=== PATIENT | female | born 1965 | race Caucasian/White ===

== ENCOUNTER 2023-04-29 15:12 | Inpatient (IN) ==
[2023-04-29] MEDS ORDERED: IPRATROPIUM/ALBUTEROL 3 ML AMPUL.NEB NEB ONE ×2 (15:28)
[2023-04-29] MEDS ORDERED: ACETAMINOPHEN 325 MG TABLET PO ONE (15:28)
[2023-04-29] MEDS ORDERED: IPRATROPIUM/ALBUTEROL 3 ML AMPUL.NEB NEB PRN (15:28)
[2023-04-29] MEDS ORDERED: 0.9 % SODIUM CHLORIDE 1,000 ML IV ONE (15:28)
[2023-04-29] MEDS ORDERED: methylPREDNISolone SOD SUCC 125 MG/2 ML VIAL IV ONE (15:28)
[2023-04-29] MEDS ORDERED: MAGNESIUM SULFATE 8.12 MEQ/2 ML VIAL IV STA (15:30)
[2023-04-29] MEDS ORDERED: LEVOFLOXACIN 500 MG/100 ML BAG IV ONE (15:32)
[2023-04-29] MEDS ORDERED: LORazepam 2 MG/ML VIAL IV ONE ×2 (15:43→15:59)
[2023-04-29 16:48] LABS: Basophils # (Auto) 0.06 K/mcL (0.00-0.30); Basophils % (Auto) 0.3 % (0.0-2.0); Eosinophils # (Auto) 0.15 K/mcL (0.00-0.70); Eosinophils % (Auto) 0.7 % (0.0-7.0); Hematocrit 47.3 % (34.1-44.9); Hemoglobin 17.3 g/dL (11.2-15.7); Lymphocytes # (Auto) 0.97 K/mcL (1.50-4.80); Lymphocytes % (Auto) 4.3 % (15.5-49.0); Mean Cell Volume 94.4 fL (80.0-100.0); Mean Corpuscular HGB Conc 36.6 g/dL (31.0-36.0); Mean Platelet Volume 10.4 fL (8.8-12.5); Monocytes # (Auto) 0.81 K/mcL (0.10-0.90); Monocytes % (Auto) 3.6 % (1.0-12.0); Neutrophils % (Auto) 90.2 % (38.0-78.0); Platelet Count 232 K/mcL (140-440); RBC 5.01 M/mcL (3.59-5.38); Red Cell Distribution Width 12.1 % (11.5-14.5); WBC 22.7 K/mcL (4.5-11.0)
[2023-04-29] MEDS ORDERED: MAGNESIUM SULFATE 1 GM/100 ML BAG IV ONE (17:02)
[2023-04-29 17:11] LABS: ALT/SGPT 34 U/L (<40); AST/SGOT 70 U/L (<32); Albumin 3.9 gm/dL (3.2-5.2); Albumin/Globulin Ratio 1.1 (1.0-2.3); Alkaline Phosphatase 101 U/L (39-117); Bilirubin,Total 0.4 mg/dL (0.1-1.0); Blood Urea Nitrogen 6 mg/dL (6-20); Calcium 9.1 mg/dL (8.6-10.4); Carbon Dioxide 25 mmol/L (22-30); Chloride 84 mmol/L (96-108); Globulin 3.6 gm/dL (2.2-3.7); Glomerular Filtration Rate 97; Glucose 141 mg/dL (70-105)
[2023-04-29] MEDS ORDERED: MAGNESIUM SULFATE 2 GM/50 ML BAG IV ONE (17:24)
[2023-04-29] MEDS ORDERED: ACETAMINOPHEN 325 MG TABLET PO PRN (19:59)
[2023-04-29] MEDS ORDERED: LACTULOSE 20 GM/30 ML ORAL.SOL PO PRN (19:59)
[2023-04-29] MEDS ORDERED: SENNOSIDES 1 TABLET PO PRN (19:59)
[2023-04-29] MEDS ORDERED: ONDANSETRON 4 MG/2 ML VIAL IV PRN (19:59)
[2023-04-29] MEDS: IPRATROPIUM/ALBUTEROL 3 ML AMPUL.NEB NEB SCH ×2 (20:18→23:15)
[2023-04-29] MEDS ORDERED: levETIRAcetam 500 MG in 0.9 % SODIUM CHLORIDE 100 ML IV SCH (21:00)
[2023-04-29] MEDS: ALBUTEROL SULFATE 2.5 MG/3 ML NEBULIZER NEB PRN (21:02)
[2023-04-29] MEDS: DOCUSATE SODIUM 100 MG CAPSULE PO SCH (21:12)
[2023-04-29] MEDS: levETIRAcetam 500 MG TABLET PO SCH (21:13)
[2023-04-29] MEDS: 0.9 % SODIUM CHLORIDE 1,000 ML IV SCH (21:42)
[2023-04-29] MEDS: morphine 15 MG TAB.SR.12H PO SCH ×2 (21:43→21:52)
[2023-04-29] MEDS: methylPREDNISolone SOD SUCC 125 MG/2 ML VIAL IV SCH (21:43)
[2023-04-29] MEDS: NICOTINE 21 MG PATCH TOPICAL SCH (21:43)
[2023-04-29] MEDS: 0.9 % SODIUM CHLORIDE 10 ML SYRINGE IV SCH (21:44)
[2023-04-29 22:00] LABS: ABG Methemoglobin 0.2 % (0.4-1.5); Total Hemoglobin 16.5 gm/Dl (12.0-15.0); VBG Base Excess -2 (-2-3); VBG HCO3 21.1 mmol/L (24.0-28.0); VBG Oxygen Saturation 93.3 % (40.0-70.0); VBG PCO2 33.3 mmHg (41.0-51.0); VBG PH 7.42 U (7.32-7.42); VBG Total CO2 22.1 mmol/L (25.0-29.0)
[2023-04-29 22:12] LABS: ALT/SGPT 32 U/L (<40); AST/SGOT 74 U/L (<32); Albumin 3.5 gm/dL (3.2-5.2); Albumin/Globulin Ratio 1.1 (1.0-2.3); Alkaline Phosphatase 81 U/L (39-117); Bilirubin,Direct < 0.2 mg/dL (0-0.3); Bilirubin,Total 0.3 mg/dL (0.1-1.0); Blood Urea Nitrogen 6 mg/dL (6-20); Calcium 8.6 mg/dL (8.6-10.4); Carbon Dioxide 23 mmol/L (22-30); Chloride 85 mmol/L (96-108); Globulin 3.3 gm/dL (2.2-3.7); Glomerular Filtration Rate 102; Glucose 136 mg/dL (70-105); Lactate Dehydrogenase 337 U/L (135-225); Phosphorous 2.1 mg/dL (2.5-4.5); Triglycerides 65 mg/dL (<150); Uric Acid 5.2 mg/dL (2.5-8.0)
[2023-04-30] MEDS: oxyCODONE/APAP 5/325MG TABLET PO PRN ×5 (00:50→22:04)
[2023-04-30] MEDS: ALBUTEROL SULFATE 2.5 MG/3 ML NEBULIZER NEB PRN (00:55)
[2023-04-30] MEDS ORDERED: IOPAMIDOL 100 ML BOTTLE IV ONE (01:12)
[2023-04-30] MEDS: IPRATROPIUM/ALBUTEROL 3 ML AMPUL.NEB NEB SCH ×6 (03:28→23:08)
[2023-04-30] MEDS: morphine 15 MG TAB.SR.12H PO SCH ×3 (05:20→19:45)
[2023-04-30] MEDS: 0.9 % SODIUM CHLORIDE 10 ML SYRINGE IV SCH ×3 (05:26→20:43)
[2023-04-30] MEDS ORDERED: POTASSIUM CHLORIDE 20 MEQ TABLET PO ONE ×2 (06:28→07:03)
[2023-04-30] MEDS: levETIRAcetam 500 MG TABLET PO SCH ×4 (06:44→19:18)
[2023-04-30] MEDS: DOCUSATE SODIUM 100 MG CAPSULE PO SCH ×2 (07:02→19:18)
[2023-04-30 07:07] LABS: Basophils # (Auto) 0.03 K/mcL (0.00-0.30); Basophils % (Auto) 0.2 % (0.0-2.0); Eosinophils # (Auto) 0.04 K/mcL (0.00-0.70); Eosinophils % (Auto) 0.2 % (0.0-7.0); Hemoglobin 14.6 g/dL (11.2-15.7); Lymphocytes # (Auto) 0.87 K/mcL (1.50-4.80); Lymphocytes % (Auto) 4.4 % (15.5-49.0); Mean Corpuscular HGB Conc 34.8 g/dL (31.0-36.0); Mean Platelet Volume 9.9 fL (8.8-12.5); Monocytes # (Auto) 0.62 K/mcL (0.10-0.90); Monocytes % (Auto) 3.1 % (1.0-12.0); Neutrophils % (Auto) 91.3 % (38.0-78.0); Platelet Count 200 K/mcL (140-440); RBC 4.33 M/mcL (3.59-5.38); Red Cell Distribution Width 12.4 % (11.5-14.5); WBC 19.8 K/mcL (4.5-11.0)
[2023-04-30 07:46] LABS: ALT/SGPT 31 U/L (<40); AST/SGOT 77 U/L (<32); Albumin 3.2 gm/dL (3.2-5.2); Alkaline Phosphatase 79 U/L (39-117); Bilirubin,Direct < 0.2 mg/dL (0-0.3); Bilirubin,Total 0.3 mg/dL (0.1-1.0); Blood Urea Nitrogen 5 mg/dL (6-20); Calcium 8.5 mg/dL (8.6-10.4); Carbon Dioxide 22 mmol/L (22-30); Chloride 88 mmol/L (96-108); Globulin 3.2 gm/dL (2.2-3.7); Glomerular Filtration Rate 108; Glucose 113 mg/dL (70-105); Lactate Dehydrogenase 365 U/L (135-225); Phosphorous 1.7 mg/dL (2.5-4.5); Triglycerides 72 mg/dL (<150); Uric Acid 5.7 mg/dL (2.5-8.0)
[2023-04-30] MEDS: LORazepam 2 MG/ML VIAL IV PRN ×3 (07:46→22:05)
[2023-04-30] MEDS: methylPREDNISolone SOD SUCC 125 MG/2 ML VIAL IV SCH ×2 (08:51→20:43)
[2023-04-30] MEDS: ENOXAPARIN 40 MG/0.4 ML SYRINGE SQ SCH (08:52)
[2023-04-30] MEDS: 0.9 % SODIUM CHLORIDE 1,000 ML IV SCH ×3 (09:45→16:02)
[2023-04-30] MEDS ORDERED: POTASSIUM PHOSPHATE 40 MEQ in DEXTROSE 5% IN WATER 500 ML IV ONE (10:00)
[2023-04-30 10:06] LABS: ABG Methemoglobin 0.2 % (0.4-1.5); Total Hemoglobin 15.5 gm/Dl (12.0-15.0); VBG Base Excess 2 (-2-3); VBG Oxygen Saturation 95.7 % (40.0-70.0); VBG PCO2 43.6 mmHg (41.0-51.0); VBG PH 7.41 U (7.32-7.42); VBG Total CO2 28.4 mmol/L (25.0-29.0)
[2023-04-30] MEDS: NICOTINE 21 MG PATCH TOPICAL SCH (10:21)
[2023-04-30] MEDS ORDERED: LEVOFLOXACIN 750 MG/150 ML BAG IV SCH (12:00)
[2023-04-30] MEDS ORDERED: NITROGLYCERIN 0.4 MG TAB.SUBL SL PRN (15:06)
[2023-04-30] MEDS: ARIPIPRAZOLE 5 MG TABLET PO SCH (15:59)
[2023-04-30] MEDS: METHOCARBAMOL 500 MG TABLET PO PRN ×3 (15:59→23:23)
[2023-04-30] MEDS: NIFEdipine 30 MG TAB.XL.24H PO SCH (15:59)
[2023-04-30] MEDS ORDERED: BENZOCAINE/MENTHOL 1 LOZENGE PO PRN (19:11)
[2023-04-30] MEDS: busPIRone 15 MG TABLET PO PRN ×2 (19:45→23:23)
[2023-04-30] MEDS: BENZONATATE 100 MG CAPSULE PO PRN (20:44)
[2023-05-01] MEDS: oxyCODONE/APAP 5/325MG TABLET PO PRN ×2 (02:24→17:22)
[2023-05-01] MEDS: LORazepam 2 MG/ML VIAL IV PRN ×7 (02:24→22:02)
[2023-05-01] MEDS: METHOCARBAMOL 500 MG TABLET PO PRN (02:24)
[2023-05-01] MEDS: IPRATROPIUM/ALBUTEROL 3 ML AMPUL.NEB NEB SCH ×7 (02:29→22:19)
[2023-05-01 06:26] LABS: Basophils # (Auto) 0.03 K/mcL (0.00-0.30); Basophils % (Auto) 0.1 % (0.0-2.0); Eosinophils # (Auto) 0 K/mcL (0.00-0.70); Eosinophils % (Auto) 0 % (0.0-7.0); Hematocrit 37.9 % (34.1-44.9); Lymphocytes # (Auto) 1.07 K/mcL (1.50-4.80); Lymphocytes % (Auto) 5.3 % (15.5-49.0); Mean Cell Volume 97.4 fL (80.0-100.0); Mean Corpuscular HGB Conc 34.3 g/dL (31.0-36.0); Mean Platelet Volume 9.8 fL (8.8-12.5); Monocytes # (Auto) 0.59 K/mcL (0.10-0.90); Monocytes % (Auto) 2.9 % (1.0-12.0); Platelet Count 205 K/mcL (140-440); RBC 3.89 M/mcL (3.59-5.38); Red Cell Distribution Width 12.8 % (11.5-14.5)
[2023-05-01] MEDS: BENZONATATE 100 MG CAPSULE PO PRN (06:30)
[2023-05-01] MEDS: levETIRAcetam 500 MG TABLET PO SCH ×2 (06:30→09:31)
[2023-05-01] MEDS: morphine 15 MG TAB.SR.12H PO SCH ×3 (06:30→19:02)
[2023-05-01] MEDS: 0.9 % SODIUM CHLORIDE 1,000 ML IV SCH (06:31)
[2023-05-01] MEDS: 0.9 % SODIUM CHLORIDE 10 ML SYRINGE IV SCH ×7 (06:31→22:10)
[2023-05-01 07:01] LABS: ALT/SGPT 42 U/L (<40); AST/SGOT 80 U/L (<32); Albumin 3.1 gm/dL (3.2-5.2); Albumin/Globulin Ratio 1.1 (1.0-2.3); Alkaline Phosphatase 96 U/L (39-117); Bilirubin,Direct < 0.2 mg/dL (0-0.3); Bilirubin,Total 0.2 mg/dL (0.1-1.0); Blood Urea Nitrogen 7 mg/dL (6-20); Calcium 8.5 mg/dL (8.6-10.4); Carbon Dioxide 24 mmol/L (22-30); Chloride 89 mmol/L (96-108); Globulin 2.7 gm/dL (2.2-3.7); Glomerular Filtration Rate 128; Glucose 135 mg/dL (70-105); Lactate Dehydrogenase 364 U/L (135-225); Phosphorous 1.7 mg/dL (2.5-4.5); Triglycerides 111 mg/dL (<150); Uric Acid 4.5 mg/dL (2.5-8.0)
[2023-05-01] MEDS ORDERED: morphine 2 MG/ML VIAL IV PRN (07:14)
[2023-05-01] MEDS ORDERED: POTASSIUM PHOSPHATE 40 MEQ in DEXTROSE 5% IN WATER 500 ML IV ONE (07:19)
[2023-05-01 07:35] LABS: Neutrophils % (Auto) 90.1 % (38.0-78.0)
[2023-05-01] MEDS: DEXMEDETOMIDINE 400 MCG in PREMIX 1 BAG IV PRN ×4 (07:47→23:26)
[2023-05-01] MEDS ORDERED: DEXMEDETOMIDINE 100 ML IV ONE ×2 (07:48→18:35)
[2023-05-01] MEDS: morphine 2 MG/ML VIAL IV PRN ×4 (08:28→22:10)
[2023-05-01] MEDS ORDERED: morphine 2 MG/ML VIAL ONE (08:28)
[2023-05-01] MEDS: ALBUTEROL SULFATE 2.5 MG/3 ML NEBULIZER NEB PRN (08:29)
[2023-05-01] MEDS ORDERED: LORazepam 2 MG/ML VIAL IV SCH (08:40)
[2023-05-01] MEDS ORDERED: morphine 4 MG/ML VIAL IV PRN (09:03)
[2023-05-01] MEDS: NIFEdipine 30 MG TAB.XL.24H PO SCH (09:31)
[2023-05-01] MEDS: ARIPIPRAZOLE 5 MG TABLET PO SCH (09:32)
[2023-05-01] MEDS: VENLAFAXINE 150 MG CAP.XL.24H PO SCH (09:32)
[2023-05-01] MEDS: DOCUSATE SODIUM 100 MG CAPSULE PO SCH ×2 (09:32→21:20)
[2023-05-01] MEDS: ENOXAPARIN 40 MG/0.4 ML SYRINGE SQ SCH (10:00)
[2023-05-01] MEDS: AZITHROMYCIN 500 MG in DEXTROSE 5% IN WATER 250 ML IV SCH (10:00)
[2023-05-01] MEDS: methylPREDNISolone SOD SUCC 125 MG/2 ML VIAL IV SCH ×3 (10:00→21:31)
[2023-05-01] MEDS: CEFEPIME 2 GM VIAL IV SCH ×3 (10:01→21:20)
[2023-05-01] MEDS: NICOTINE 21 MG PATCH TOPICAL SCH (10:03)
[2023-05-01 10:31] LABS: ABG Methemoglobin 0.1 % (0.4-1.5); Total Hemoglobin 13.7 gm/Dl (12.0-15.0); VBG Base Excess 0 (-2-3); VBG HCO3 25.2 mmol/L (24.0-28.0); VBG Oxygen Saturation 92.2 % (40.0-70.0); VBG PCO2 44.7 mmHg (41.0-51.0); VBG PH 7.37 U (7.32-7.42); VBG PO2 94.6 mmHg (25.0-40.0); VBG Total CO2 26.6 mmol/L (25.0-29.0)
[2023-05-01] MEDS ORDERED: IPRATROPIUM/ALBUTEROL 3 ML AMPUL.NEB NEB ONE (11:07)
[2023-05-01] MEDS ORDERED: levETIRAcetam 500 MG TABLET PO SCH (19:00)
[2023-05-01] MEDS: busPIRone 15 MG TABLET PO PRN (19:02)
[2023-05-01] MEDS: levETIRAcetam 750 MG in 0.9 % SODIUM CHLORIDE 100 ML IV SCH (19:05)
[2023-05-01] MEDS: 0.9 % SODIUM CHLORIDE 250 ML IV SCH (23:29)
[2023-05-02] MEDS: LORazepam 2 MG/ML VIAL IV PRN ×6 (01:46→23:46)
[2023-05-02] MEDS: 0.9 % SODIUM CHLORIDE 10 ML SYRINGE IV SCH ×10 (01:47→23:49)
[2023-05-02] MEDS: METHOCARBAMOL 500 MG TABLET PO PRN (01:48)
[2023-05-02] MEDS: ALBUTEROL SULFATE 2.5 MG/3 ML NEBULIZER NEB PRN ×2 (01:59→08:12)
[2023-05-02] MEDS: morphine 2 MG/ML VIAL IV PRN ×3 (02:04→09:37)
[2023-05-02] MEDS ORDERED: DEXMEDETOMIDINE 100 ML IV ONE ×2 (04:01→14:18)
[2023-05-02] MEDS: DEXMEDETOMIDINE 400 MCG in PREMIX 1 BAG IV PRN ×2 (04:07→09:36)
[2023-05-02] MEDS: IPRATROPIUM/ALBUTEROL 3 ML AMPUL.NEB NEB SCH ×6 (04:11→23:13)
[2023-05-02] MEDS: CEFEPIME 2 GM VIAL IV SCH ×3 (05:40→21:25)
[2023-05-02] MEDS: methylPREDNISolone SOD SUCC 125 MG/2 ML VIAL IV SCH ×3 (05:47→21:25)
[2023-05-02] MEDS: NIFEdipine 30 MG TAB.XL.24H PO SCH (07:33)
[2023-05-02] MEDS: levETIRAcetam 750 MG in 0.9 % SODIUM CHLORIDE 100 ML IV SCH ×2 (07:33→18:29)
[2023-05-02] MEDS: VENLAFAXINE 150 MG CAP.XL.24H PO SCH (07:33)
[2023-05-02] MEDS: DOCUSATE SODIUM 100 MG CAPSULE PO SCH ×2 (07:33→20:41)
[2023-05-02] MEDS: morphine 15 MG TAB.SR.12H PO SCH ×2 (07:33→19:13)
[2023-05-02 07:46] LABS: ALT/SGPT 50 U/L (<40); AST/SGOT 46 U/L (<32); Alkaline Phosphatase 122 U/L (39-117); Bilirubin,Direct < 0.2 mg/dL (0-0.3); Bilirubin,Total 0.2 mg/dL (0.1-1.0); Blood Urea Nitrogen 10 mg/dL (6-20); Calcium 8.5 mg/dL (8.6-10.4); Carbon Dioxide 27 mmol/L (22-30); Chloride 95 mmol/L (96-108); Globulin 2.9 gm/dL (2.2-3.7); Glomerular Filtration Rate 116; Glucose 143 mg/dL (70-105); Lactate Dehydrogenase 310 U/L (135-225); Phosphorous 1.9 mg/dL (2.5-4.5); Triglycerides 143 mg/dL (<150); Uric Acid 5.1 mg/dL (2.5-8.0)
[2023-05-02 07:50] LABS: Basophils # (Auto) 0.02 K/mcL (0.00-0.30); Basophils % (Auto) 0.2 % (0.0-2.0); Eosinophils # (Auto) 0 K/mcL (0.00-0.70); Eosinophils % (Auto) 0 % (0.0-7.0); Hematocrit 37.2 % (34.1-44.9); Hemoglobin 12.5 g/dL (11.2-15.7); Lymphocytes # (Auto) 1.23 K/mcL (1.50-4.80); Mean Cell Volume 98.9 fL (80.0-100.0); Mean Corpuscular HGB Conc 33.6 g/dL (31.0-36.0); Mean Platelet Volume 9.9 fL (8.8-12.5); Monocytes # (Auto) 0.33 K/mcL (0.10-0.90); Monocytes % (Auto) 2.6 % (1.0-12.0); Neutrophils % (Auto) 86.8 % (38.0-78.0); Platelet Count 232 K/mcL (140-440); RBC 3.76 M/mcL (3.59-5.38); Red Cell Distribution Width 13.1 % (11.5-14.5); WBC 12.6 K/mcL (4.5-11.0)
[2023-05-02] MEDS: ENOXAPARIN 40 MG/0.4 ML SYRINGE SQ SCH (08:03)
[2023-05-02 08:54] LABS: ABG Methemoglobin 0.2 % (0.4-1.5); Total Hemoglobin 14.6 gm/Dl (12.0-15.0); VBG Base Excess 0 (-2-3); VBG Oxygen Saturation 92.7 % (40.0-70.0); VBG PCO2 37.1 mmHg (41.0-51.0); VBG PH 7.43 U (7.32-7.42); VBG PO2 108.2 mmHg (25.0-40.0); VBG Total CO2 25.1 mmol/L (25.0-29.0)
[2023-05-02 09:15] LABS: Lymphocytes % (Auto) 9.8 % (15.5-49.0)
[2023-05-02] MEDS: ARIPIPRAZOLE 5 MG TABLET PO SCH (09:40)
[2023-05-02] MEDS: AZITHROMYCIN 500 MG in DEXTROSE 5% IN WATER 250 ML IV SCH (09:40)
[2023-05-02] MEDS: morphine 4 MG/ML VIAL IV PRN ×2 (11:05→17:20)
[2023-05-02] MEDS: NICOTINE 21 MG PATCH TOPICAL SCH (12:43)
[2023-05-02] MEDS: 0.9 % SODIUM CHLORIDE 250 ML IV SCH (12:44)
[2023-05-02] MEDS: oxyCODONE/APAP 5/325MG TABLET PO PRN (23:45)
[2023-05-03] MEDS: 0.9 % SODIUM CHLORIDE 250 ML IV SCH ×2 (00:31→15:57)
[2023-05-03] MEDS: morphine 4 MG/ML VIAL IV PRN ×5 (02:29→23:13)
[2023-05-03] MEDS: 0.9 % SODIUM CHLORIDE 10 ML SYRINGE IV SCH ×6 (02:30→21:04)
[2023-05-03] MEDS: IPRATROPIUM/ALBUTEROL 3 ML AMPUL.NEB NEB SCH ×6 (03:05→23:02)
[2023-05-03] MEDS: busPIRone 15 MG TABLET PO PRN ×3 (04:38→19:04)
[2023-05-03] MEDS: oxyCODONE/APAP 5/325MG TABLET PO PRN (05:34)
[2023-05-03] MEDS: methylPREDNISolone SOD SUCC 125 MG/2 ML VIAL IV SCH ×3 (05:41→21:02)
[2023-05-03] MEDS: CEFEPIME 2 GM VIAL IV SCH ×3 (05:45→21:02)
[2023-05-03] MEDS: LORazepam 2 MG/ML VIAL IV PRN ×4 (06:16→21:03)
[2023-05-03 08:37] LABS: Basophils # (Auto) 0.05 K/mcL (0.00-0.30); Basophils % (Auto) 0.4 % (0.0-2.0); Eosinophils # (Auto) 0.02 K/mcL (0.00-0.70); Eosinophils % (Auto) 0.1 % (0.0-7.0); Hematocrit 41.9 % (34.1-44.9); Hemoglobin 13.9 g/dL (11.2-15.7); Lymphocytes # (Auto) 1.26 K/mcL (1.50-4.80); Mean Cell Volume 100.7 fL (80.0-100.0); Mean Corpuscular HGB Conc 33.2 g/dL (31.0-36.0); Mean Platelet Volume 9.1 fL (8.8-12.5); Monocytes # (Auto) 1.08 K/mcL (0.10-0.90); Monocytes % (Auto) 7.7 % (1.0-12.0); Neutrophils % (Auto) 81.8 % (38.0-78.0); Platelet Count 236 K/mcL (140-440); RBC 4.16 M/mcL (3.59-5.38); Red Cell Distribution Width 13.3 % (11.5-14.5); WBC 14.1 K/mcL (4.5-11.0)
[2023-05-03] MEDS: ENOXAPARIN 40 MG/0.4 ML SYRINGE SQ SCH (09:00)
[2023-05-03] MEDS: NICOTINE 21 MG PATCH TOPICAL SCH (09:00)
[2023-05-03] MEDS: DOCUSATE SODIUM 100 MG CAPSULE PO SCH ×2 (09:01→20:52)
[2023-05-03] MEDS: VENLAFAXINE 150 MG CAP.XL.24H PO SCH (09:01)
[2023-05-03] MEDS: morphine 15 MG TAB.SR.12H PO SCH ×2 (09:01→18:27)
[2023-05-03] MEDS: NIFEdipine 30 MG TAB.XL.24H PO SCH (09:01)
[2023-05-03] MEDS: ARIPIPRAZOLE 5 MG TABLET PO SCH (09:01)
[2023-05-03] MEDS: levETIRAcetam 750 MG in 0.9 % SODIUM CHLORIDE 100 ML IV SCH (09:05)
[2023-05-03] MEDS: AZITHROMYCIN 500 MG in DEXTROSE 5% IN WATER 250 ML IV SCH (09:05)
[2023-05-03 09:14] LABS: ALT/SGPT 48 U/L (<40); AST/SGOT 42 U/L (<32); Albumin 3.4 gm/dL (3.2-5.2); Albumin/Globulin Ratio 1.1 (1.0-2.3); Alkaline Phosphatase 108 U/L (39-117); Bilirubin,Direct < 0.2 mg/dL (0-0.3); Bilirubin,Total 0.5 mg/dL (0.1-1.0); Blood Urea Nitrogen 10 mg/dL (6-20); Calcium 8.8 mg/dL (8.6-10.4); Carbon Dioxide 24 mmol/L (22-30); Chloride 90 mmol/L (96-108); Globulin 3.1 gm/dL (2.2-3.7); Glomerular Filtration Rate 128; Glucose 140 mg/dL (70-105); Lactate Dehydrogenase 378 U/L (135-225); Phosphorous 1.3 mg/dL (2.5-4.5); Triglycerides 153 mg/dL (<150); Uric Acid 3.9 mg/dL (2.5-8.0)
[2023-05-03] MEDS ORDERED: POTASSIUM PHOSPHATE 40 MEQ in DEXTROSE 5% IN WATER 500 ML IV ONE (11:00)
[2023-05-03] MEDS ORDERED: DEXMEDETOMIDINE 400 MCG in PREMIX 1 BAG IV PRN (11:42)
[2023-05-03] MEDS: BENZONATATE 100 MG CAPSULE PO PRN (19:04)
[2023-05-03] MEDS: levETIRAcetam 500 MG TABLET PO SCH (20:52)
[2023-05-04] MEDS: LORazepam 2 MG/ML VIAL IV PRN ×4 (00:44→19:22)
[2023-05-04] MEDS: 0.9 % SODIUM CHLORIDE 250 ML IV SCH ×2 (02:59→13:05)
[2023-05-04] MEDS: IPRATROPIUM/ALBUTEROL 3 ML AMPUL.NEB NEB SCH ×6 (03:41→23:55)
[2023-05-04] MEDS: CEFEPIME 2 GM VIAL IV SCH ×3 (05:35→21:02)
[2023-05-04] MEDS: methylPREDNISolone SOD SUCC 125 MG/2 ML VIAL IV SCH ×3 (05:35→21:02)
[2023-05-04] MEDS: 0.9 % SODIUM CHLORIDE 10 ML SYRINGE IV SCH ×4 (05:35→21:06)
[2023-05-04] MEDS: morphine 15 MG TAB.SR.12H PO SCH ×2 (07:25→19:20)
[2023-05-04] MEDS: METHOCARBAMOL 500 MG TABLET PO PRN ×3 (07:25→19:20)
[2023-05-04] MEDS: levETIRAcetam 500 MG TABLET PO SCH ×2 (07:25→19:21)
[2023-05-04 07:40] LABS: Basophils # (Auto) 0.05 K/mcL (0.00-0.30); Basophils % (Auto) 0.3 % (0.0-2.0); Eosinophils # (Auto) 0 K/mcL (0.00-0.70); Eosinophils % (Auto) 0 % (0.0-7.0); Hematocrit 45.1 % (34.1-44.9); Hemoglobin 15.7 g/dL (11.2-15.7); Lymphocytes # (Auto) 1.53 K/mcL (1.50-4.80); Mean Corpuscular HGB Conc 34.8 g/dL (31.0-36.0); Mean Platelet Volume 9.5 fL (8.8-12.5); Monocytes # (Auto) 0.93 K/mcL (0.10-0.90); Monocytes % (Auto) 6.2 % (1.0-12.0); Neutrophils % (Auto) 81.4 % (38.0-78.0); Platelet Count 313 K/mcL (140-440); Red Cell Distribution Width 12.6 % (11.5-14.5); WBC 14.9 K/mcL (4.5-11.0)
[2023-05-04 08:01] LABS: ALT/SGPT 39 U/L (<40); AST/SGOT 19 U/L (<32); Albumin 3.5 gm/dL (3.2-5.2); Albumin/Globulin Ratio 1.2 (1.0-2.3); Alkaline Phosphatase 106 U/L (39-117); Bilirubin,Direct < 0.2 mg/dL (0-0.3); Bilirubin,Total 0.5 mg/dL (0.1-1.0); Blood Urea Nitrogen 14 mg/dL (6-20); Calcium 9.1 mg/dL (8.6-10.4); Carbon Dioxide 29 mmol/L (22-30); Chloride 92 mmol/L (96-108); Glomerular Filtration Rate 116; Glucose 123 mg/dL (70-105); Lactate Dehydrogenase 315 U/L (135-225); Phosphorous 2.9 mg/dL (2.5-4.5); Triglycerides 126 mg/dL (<150); Uric Acid 2.7 mg/dL (2.5-8.0)
[2023-05-04] MEDS: ENOXAPARIN 40 MG/0.4 ML SYRINGE SQ SCH (08:15)
[2023-05-04] MEDS: DOCUSATE SODIUM 100 MG CAPSULE PO SCH ×2 (08:15→21:02)
[2023-05-04] MEDS: BENZONATATE 100 MG CAPSULE PO PRN ×2 (08:15→19:20)
[2023-05-04] MEDS: VENLAFAXINE 150 MG CAP.XL.24H PO SCH (08:15)
[2023-05-04] MEDS: oxyCODONE/APAP 5/325MG TABLET PO PRN ×3 (08:15→21:02)
[2023-05-04] MEDS: AZITHROMYCIN 500 MG in DEXTROSE 5% IN WATER 250 ML IV SCH (08:15)
[2023-05-04] MEDS: busPIRone 15 MG TABLET PO PRN ×2 (08:15→19:20)
[2023-05-04] MEDS: NICOTINE 21 MG PATCH TOPICAL SCH (08:15)
[2023-05-04] MEDS: ARIPIPRAZOLE 5 MG TABLET PO SCH (08:15)
[2023-05-04] MEDS: NIFEdipine 30 MG TAB.XL.24H PO SCH (08:15)
[2023-05-04 08:59] LABS: Lymphocytes % (Auto) 10.2 % (15.5-49.0)
[2023-05-04] MEDS: morphine 4 MG/ML VIAL IV PRN (14:52)
[2023-05-05] MEDS: morphine 4 MG/ML VIAL IV PRN ×3 (00:07→11:55)
[2023-05-05] MEDS: IPRATROPIUM/ALBUTEROL 3 ML AMPUL.NEB NEB SCH ×4 (02:54→12:53)
[2023-05-05] MEDS: 0.9 % SODIUM CHLORIDE 250 ML IV SCH ×2 (05:10→05:27)
[2023-05-05] MEDS: CEFEPIME 2 GM VIAL IV SCH ×2 (05:20→13:11)
[2023-05-05] MEDS: METHOCARBAMOL 500 MG TABLET PO PRN ×3 (05:20→14:46)
[2023-05-05] MEDS: oxyCODONE/APAP 5/325MG TABLET PO PRN ×3 (05:20→14:46)
[2023-05-05] MEDS: 0.9 % SODIUM CHLORIDE 10 ML SYRINGE IV SCH (05:21)
[2023-05-05 07:07] LABS: ALT/SGPT 27 U/L (<40); AST/SGOT 12 U/L (<32); Albumin 3.3 gm/dL (3.2-5.2); Albumin/Globulin Ratio 1.2 (1.0-2.3); Alkaline Phosphatase 93 U/L (39-117); Bilirubin,Direct < 0.2 mg/dL (0-0.3); Bilirubin,Total 0.4 mg/dL (0.1-1.0); Blood Urea Nitrogen 14 mg/dL (6-20); Calcium 8.9 mg/dL (8.6-10.4); Carbon Dioxide 30 mmol/L (22-30); Chloride 94 mmol/L (96-108); Globulin 2.7 gm/dL (2.2-3.7); Glomerular Filtration Rate 116; Glucose 124 mg/dL (70-105); Lactate Dehydrogenase 289 U/L (135-225); Phosphorous 2.8 mg/dL (2.5-4.5); Triglycerides 114 mg/dL (<150); Uric Acid 2.4 mg/dL (2.5-8.0)
[2023-05-05] MEDS: morphine 15 MG TAB.SR.12H PO SCH (07:37)
[2023-05-05] MEDS: levETIRAcetam 500 MG TABLET PO SCH (07:37)
[2023-05-05] MEDS ORDERED: BUDESONIDE 0.5 MG/2 ML AMPUL.NEB NEB SCH ×2 (09:00→21:00)
[2023-05-05] MEDS ORDERED: methylPREDNISolone SOD SUCC 125 MG/2 ML VIAL IV SCH (09:00)
[2023-05-05] MEDS: NIFEdipine 30 MG TAB.XL.24H PO SCH (09:04)
[2023-05-05] MEDS: ENOXAPARIN 40 MG/0.4 ML SYRINGE SQ SCH (09:04)
[2023-05-05] MEDS: AZITHROMYCIN 500 MG in DEXTROSE 5% IN WATER 250 ML IV SCH (09:04)
[2023-05-05] MEDS: ARIPIPRAZOLE 5 MG TABLET PO SCH (09:04)
[2023-05-05] MEDS: VENLAFAXINE 150 MG CAP.XL.24H PO SCH (09:04)
[2023-05-05] MEDS: NICOTINE 21 MG PATCH TOPICAL SCH (09:04)
[2023-05-05] MEDS: DOCUSATE SODIUM 100 MG CAPSULE PO SCH (09:04)
[2023-05-05] MEDS: busPIRone 15 MG TABLET PO PRN ×2 (09:26→14:46)
== END 2023-05-05 15:02 | disposition home or self-care (01) | DRG 189 ==
LOC: ED 15:12 → ICU 19:52 → SUATTDRO 19:52 → ICU 04-30 15:40
PROVIDERS: ADMIT Internal Medicine; ATTEND Internal Medicine